=== PATIENT | male | born 1990 | race Caucasian/White ===

== ENCOUNTER 2016-08-19 15:04 | Outpatient (CLI) | payer BC ==
[2016-08-19 15:23] LABS: #Basophils 0.1 thou/uL (0.0-0.2); #Eosinphils 0.1 thou/uL (0.0-0.7); #Lymphocytes 1.8 thou/uL (1.20-3.40); #Neutrophils 6.2 thou/uL (1.40-6.50); %Basophils 0.6 % (0.0-1.0); %Eosinophils 1.5 % (0.0-10.0); %Lymphocytes 19.6 % (21.0-51.0); %Monocytes 10.5 % (0.0-10.0); %Neutrophils 67.8 % (42.0-75.0); Hemoglobin 15.9 g/dL (14.0-18.0); Mean Corpuscular HGB CONC 33.7 g/dL (32.0-36.0); Mean Corpuscular Hemoglobin 30.2 pg (27.0-31.0); Mean Corpuscular Volume 89.6 fl (80.0-94.0); Mean Platelet Volume 10.3 fL (7.4-10.4); Platelet Count 262 thou/uL (130-400); Red Blood Cell (RBC) Count 5.27 mill/uL (4.70-6.10); White Blood Cell (WBC) Count 9.1 thou/uL (4.8-10.8)
[2016-08-19 16:35] LABS: ALT (SGPT) 50 U/L (8-55); AST (SGOT) 24 U/L (5-34); Albumin 4.4 g/dL (3.5-5.0); Alkaline Phosphatase 80 U/L (40-150); Anion Gap 17 mmol/L (10-20); BUN (Urea Nitrogen) 15 mg/dL (8.9-20.6); Calc. Creatinine Clearance 0 mL/min (70-130); Calcium 9.6 mg/dL (7.8-10.44); Carbon Dioxide 26 mmol/L (22-29); Cardiac Risk 4.6 (Less than 4.5); Chloride 102 mmol/L (98-107); Cholesterol 199 mg/dl (< 200 Desired); Estimated GFR-MDRD Greater than 90; Globulin 3.9 g/dL (2.4-3.5); Glucose 82 mg/dL (70-105); HDL Cholesterol 43 mg/dL (>60 Neg Risk); LDL Cholesterol, Calculated 131 mg/dL; Protein, Total 8.3 g/dL (6.0-8.3); Sodium 141 mmol/L (136-145); Triglycerides 126 mg/dL (Less than 150)
[2016-08-19 16:37] LABS: Hemoglobin A1c 4.9 % (4.0-6.0)
[2016-08-19 21:13] LABS: Blood, Urine Negative (Negative); Clarity Clear (Clear); Glucose, Urine (Dipstick) Negative (Negative); Leukocyte Negative (Negative); Nitrite Positive (Negative); Protein, Urine (Dipstick) Negative (Neg-Trace); Specific Gravity, Urine 1.025 (1.005-1.030); Urobilinogen 0.2 mg/dL (0.2-1.0)
[2016-08-19 21:15] LABS: Bilirubin Negative (Negative); Icto Negative (Negative)
[2016-08-19 21:24] LABS: Bacteria/HPF None Seen HPF (None Seen); RBC/HPF 0-3 HPF (0-3); Squamous Epithelial 0-3 HPF (0-3); WBC/HPF None Seen HPF (0-3)
== END 2016-08-19 15:05 | disposition home or self-care (01) ==
LOC: NAV LAB 15:04
PROVIDERS: ATTEND Internal Medicine
DX: Z00.00 Encounter for general adult medical examination without abnormal findings (principal)
CPT/HCPCS: 36415; 80053; 80061; 81003; 81015; 83036; 84443; 85025